=== PATIENT | female | born 1955 | race Caucasian/White ===

== ENCOUNTER 2020-01-17 21:53 | Observation (INO) | payer MEDICAID, MEDICARE, SELFPAY ==
[~2020-01-17] VITALS: Ht 160 cm; Wt 61.8 kg
[~2020-01-17 21:53] MED LIST: BACL-19 PO; BACL20TA PO; BUSP5TAB2 PO; DULO30CA2 PO; ESOM2.5S PO; ESOM20CA PO; ESOM20CA57 PO; FLUO40CA2 PO; HYDR-3245 PO; HYDR50CA2 PO; LEVO25TA2 PO; OXYC10SY PO; OXYC5TAB2 PO; PANT40TA5 PO; PREG25CA PO; PRIM50TA34 PO; SUCR1TAB33 PO
[2020-01-17] MEDS ORDERED: SODIUM CHLORIDE 0.9% 1,000ML IVBOLUS ONE (22:00)
--- NOTE | 2020-01-17 22:08 | NUR ---
BIBA. REPORT RECEIVED FROM EMS. OD(2 EMPTY BOTTLES OF 10MG OF OXYCODONE AND 1 EMPTY BOTTLE OF 10MG OXYCONTIN PER EMS) UNKNOWN CAUSE. UNKNOWN SI. AROUSABLE OF LOUD VOICE. RESPS EVEN AND UNLABORED. ALL MONITORS IN PLACE. VSS. EDMD AT BEDSIDE TO EVALUATE AT THIS TIME. EKG DONE AT BEDSIDE.
[2020-01-17] MEDS ORDERED: NALOXONE 0.4 MG/ML, 1ML ONE ×3 (22:34→22:38)
--- NOTE | 2020-01-17 22:41 | NUR ---
PT MEDICATED PER EMAR. PT TOLERATED WELL. NS INFUSING AT THIS TIME.
--- NOTE | 2020-01-17 22:42 | NUR ---
BG 52 AT THIS TIME.
[2020-01-17] MEDS ORDERED: DEXTROSE 50%, 50ML SYRINGE ONE (22:43)
[2020-01-17] MEDS ORDERED: NALOXONE 0.4 MG/ML, 1ML IVPush ONE (23:00)
--- NOTE | 2020-01-17 23:00 | NUR ---
PT STRAIGHT CATH'D USING STERILE TECHNIQUE AT THIS TIME. PT TOLERATED WELL. EMT WALKED TO LAB FOR UA.
--- NOTE | 2020-01-17 23:01 | NUR ---
PERMISSION FROM PT TO SPEAK HER DAUGHTER, CARMELITA UPDATED INFO. NUMBER [phone]
[2020-01-17 23:09] LABS: ANION GAP 9 mmol/L (5-15); CALCIUM 8.9 mg/dL (8.5-10.1); CHLORIDE 107 mmol/L (98-107)
[2020-01-17] MEDS ORDERED: BACL-19 PO (23:10)
[2020-01-17 23:11] LABS: SALICYLATE LEVEL < 1.7 mg/dL (2.8-20.0)
[2020-01-17] MEDS ORDERED: PREG75CA PO (23:11)
[2020-01-17] MEDS ORDERED: OXYC10TA6 PO (23:11)
[2020-01-17 23:12] LABS: MICROSCOPIC NOT IND
[2020-01-17] MEDS ORDERED: B12 (23:12)
[2020-01-17] MEDS ORDERED: MAGN400T36 PO (23:12)
[2020-01-17] MEDS ORDERED: POTASSIUM PO (23:13)
[2020-01-17] MEDS ORDERED: LEVO25TA4 PO (23:14)
[2020-01-17] MEDS ORDERED: FLUO40CA2 PO (23:14)
[2020-01-17] MEDS ORDERED: OMEP-110 PO (23:15)
[2020-01-17] MEDS ORDERED: CALTRATE (23:15)
[2020-01-17 23:16] LABS: AMPHETAMINE SCREEN, URINE Negative (Negative); BARBITURATE SCREEN, URINE Negative (Negative); BENZODIAZEPINE SCREEN, URINE Negative (Negative); CANNABINOID SCREEN, URINE Negative (Negative); COCAINE SCREEN, URINE Negative (Negative); CULTURE INDICATED? NO; METHADONE SCREEN, URINE Negative (Negative); OPIATE SCREEN, URINE Positive (Negative)
[2020-01-17] MEDS ORDERED: CALCIUM (23:16)
[2020-01-17 23:18] LABS: ALANINE AMINOTRANSFERASE 15 U/L (12-78); ALKALINE PHOSPHATASE 172 U/L (45-117); BILIRUBIN,TOTAL 0.8 mg/dL (0.2-1.0); CREATININE 0.81 mg/dL (0.55-1.02); FREE T4 (FREE THYROXINE) 1.11 ng/dL (0.76-1.46); TOTAL PROTEIN 6.5 g/dL (6.4-8.2)
--- NOTE | 2020-01-17 23:22 | NUR ---
BG 115 AT THIS TIME.
--- NOTE | 2020-01-17 23:27 | NUR ---
NOTED PT INCONTINENT OF URINE. FULL LINEN CHANGED COMPLETED AT THIS TIME.
[2020-01-17 23:42] LABS: MEAN CORPUSCULAR HEMOGLOBIN 29.2 pg (27.0-34.8); MEAN CORPUSCULAR HGB CONC 32.2 g/dL (32.4-35.8); MEAN CORPUSCULAR VOLUME 90.7 fL (80-100); MEAN PLATELET VOLUME 8.5 fL (7.4-10.4); PLATELET COUNT 135 x10^3/uL (130-400); RED BLOOD COUNT 3.91 x10^6/uL (3.82-5.3)
[2020-01-17 23:48] LABS: BASOPHILS # (AUTO) 0.25 x10^3/uL (0-0.1); BASOPHILS % (AUTO) 4 % (0-1); EOSINOPHILS # (AUTO) 0.15 x10^3/uL (0-0.4); EOSINOPHILS % (AUTO) 3 % (1-7); LYMPHOCYTES # (AUTO) 2.67 x10^3/uL (1-3.4); LYMPHOCYTES % (AUTO) 46 % (22-44); MD SCAN; MONOCYTES # (AUTO) 0.69 x10^3/uL (0.2-0.8); MONOCYTES % (AUTO) 12 % (2-9); NEUTROPHILS # (AUTO) 2.02 x10^3/uL (1.8-6.8); NEUTROPHILS % (AUTO) 35 % (42-75)
--- NOTE | 2020-01-18 00:05 | NUR ---
pt sleeping in [facility]. resps even and unlabored. all monitors in place. call light within reach. rails up x 2.
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
--- NOTE | 2020-01-18 01:05 | NUR ---
report from JULIOCESAR Rangel to assume care at this time.
--- NOTE | 2020-01-18 01:06 | NUR ---
PT'S SON IN LAW [phone]
--- NOTE | 2020-01-18 01:06 | NUR ---
BG 63 AT THIS TIME.
--- NOTE | 2020-01-18 01:07 | NUR ---
REPORT GIVEN TO HUNTER GANDARA.
[2020-01-18] MEDS ORDERED: DEXTROSE 50%, 50ML SYRINGE ONE (01:09)
[2020-01-18] MEDS ORDERED: DEXTROSE 50%, 50ML SYRINGE IVPush ONE (01:30)
[2020-01-18] MEDS ORDERED: POTASSIUM CHLORIDE 20 MEQ in DEXTROSE 10% 1,000 ML IV SCH (01:30)
--- NOTE | 2020-01-18 01:34 | NUR ---
PT MEDICARED PER MAR. VSS. PT NOW ARROUSABLE TO VOICE AND IS CONVERSING. PT HE SI AT THIS TIME. PT PLACED ON 2LNC. NO NEEDS EXPRESSED. PLAN TO ADMIT ICU.
--- NOTE | 2020-01-18 02:15 | NUR ---
PT NOW MUCH MORE AWAKE. POC DISCUSSED. 2ND IV ESTABLISHED. PT INCONTINENT TO STOOL AND URINE. FULL LINEN CHANGE PERFORMED WITH ASSISTANCE OF GEORGE GANDARA. PT GIVEN MULTIPLE WARM BLANKETS. PT PLACED IN POSITION OF COMFORT. PT DENIES FURTHER NEEDS AT THIS TIME. CALL LIGHT ON LAP. BED RAILS UP X2.
[2020-01-18] MEDS ORDERED: POTASSIUM CHLORIDE 20 MEQ, MAGNESIUM SULFATE 2 GM, THIAMINE 200 MG, MVI ADULT 10 ML, FO... IV SCH ×2 (03:06→14:30)
[2020-01-18] MEDS ORDERED: DEXTROSE 4 GM TAB.CHEW PO PRN (03:30)
[2020-01-18] MEDS ORDERED: hydrALAzine 20 MG/ML, 1ML IVPush PRN (03:30)
[2020-01-18] MEDS ORDERED: ACETAMINOPHEN 325 MG TABLET PO PRN (03:30)
[2020-01-18] MEDS ORDERED: ONDANSETRON 2MG/ML, 2ML IVPush PRN (03:30)
[2020-01-18] MEDS ORDERED: GLUCAGON 1 MG IM PRN (03:30)
[2020-01-18] MEDS ORDERED: DEXTROSE 50%, 50ML SYRINGE IVPush PRN (03:30)
[2020-01-18 04:53] VITALS: BP 155/84
[2020-01-18 05:38] VITALS: BP 146/74
[2020-01-18] MEDS: SODIUM CHLORIDE FLUSH 10ML SYR IVF SCH ×2 (09:28→21:25)
[2020-01-18 11:56] VITALS: BP 158/83
[2020-01-18 19:30] VITALS: BP 143/77
[2020-01-19 00:40] VITALS: BP 132/70
[2020-01-19 05:50] LABS: ALBUMIN 2.5 g/dL (3.4-5.0); ANION GAP 7 mmol/L (5-15); CALCIUM 8.5 mg/dL (8.5-10.1); CHLORIDE 106 mmol/L (98-107)
[2020-01-19 05:54] LABS: ALANINE AMINOTRANSFERASE 13 U/L (12-78); ALKALINE PHOSPHATASE 145 U/L (45-117); BILIRUBIN,TOTAL 0.9 mg/dL (0.2-1.0); CREATININE 0.57 mg/dL (0.55-1.02); TOTAL PROTEIN 6.1 g/dL (6.4-8.2)
[2020-01-19 05:56] LABS: BASOPHILS # (AUTO) 0.03 x10^3/uL (0-0.1); BASOPHILS % (AUTO) 1 % (0-1); EOSINOPHILS # (AUTO) 0.09 x10^3/uL (0-0.4); EOSINOPHILS % (AUTO) 2 % (1-7); LYMPHOCYTES # (AUTO) 1.62 x10^3/uL (1-3.4); LYMPHOCYTES % (AUTO) 28 % (22-44); MD NO; MEAN CORPUSCULAR HEMOGLOBIN 29.2 pg (27.0-34.8); MEAN CORPUSCULAR HGB CONC 32.1 g/dL (32.4-35.8); MEAN CORPUSCULAR VOLUME 91.1 fL (80-100); MEAN PLATELET VOLUME 8.5 fL (7.4-10.4); MONOCYTES # (AUTO) 0.59 x10^3/uL (0.2-0.8); MONOCYTES % (AUTO) 10 % (2-9); NEUTROPHILS # (AUTO) 3.38 x10^3/uL (1.8-6.8); NEUTROPHILS % (AUTO) 59 % (42-75); PLATELET COUNT 165 x10^3/uL (130-400); RED BLOOD COUNT 4.22 x10^6/uL (3.82-5.3); RED CELL DISTRIBUTION WIDTH 16.4 % (9.6-15.2)
[2020-01-19 07:01] VITALS: BP 148/69
[2020-01-19] MEDS: SODIUM CHLORIDE FLUSH 10ML SYR IVF SCH ×2 (08:25→20:12)
[2020-01-19] MEDS ORDERED: HYDROXYZINE PAMOATE 50MG CAP PO PRN (11:00)
[2020-01-19] MEDS: HYDROcodone/APAP 5/325 TABLET PO PRN ×3 (11:58→20:12)
[2020-01-19 12:10] VITALS: BP 145/77
[2020-01-19] MEDS ORDERED: ONDANSETRON 4 MG TABLET ONE (13:26)
[2020-01-19] MEDS: POTASSIUM CHLORIDE 20 MEQ, MAGNESIUM SULFATE 2 GM, THIAMINE 200 MG, MVI ADULT 10 ML, FO... IV SCH (15:44)
[2020-01-19 19:52] VITALS: BP 160/72
[2020-01-19] MEDS: BACLOFEN 10 MG TABLET PO SCH (20:12)
[2020-01-19] MEDS: PREGABALIN 75 MG CAPSULE PO SCH (20:12)
[2020-01-20 00:06] VITALS: BP 136/60
[2020-01-20] MEDS: HYDROcodone/APAP 5/325 TABLET PO PRN ×3 (00:23→11:22)
[2020-01-20] MEDS ORDERED: LEVOTHYROXINE 25 MCG TABLET PO SCH (06:00)
[2020-01-20 06:32] VITALS: BP 164/72
[2020-01-20] MEDS: SODIUM CHLORIDE FLUSH 10ML SYR IVF SCH (08:23)
[2020-01-20] MEDS: BACLOFEN 10 MG TABLET PO SCH (08:24)
[2020-01-20] MEDS: PREGABALIN 75 MG CAPSULE PO SCH (08:24)
[2020-01-20] MEDS ORDERED: FLUOXETINE HCL 20 MG CAPSULE PO SCH (09:00)
[2020-01-20] MEDS ORDERED: OMEPRAZOLE 20 MG CAPSULE.DR PO SCH (09:00)
[2020-01-20] MEDS ORDERED: DULOXETINE 30 MG CAPSULE.DR PO SCH (09:00)
[2020-01-20 13:25] VITALS: BP 150/76
[2020-01-20] MEDS: POTASSIUM CHLORIDE 20 MEQ, MAGNESIUM SULFATE 2 GM, THIAMINE 200 MG, MVI ADULT 10 ML, FO... IV SCH (13:31)
== END 2020-01-20 15:36 | disposition home or self-care (01) ==
LOC: EDUNIT# 21:53 → ED 01-18 01:06 → INTOOBSV 01-18 01:50 → EDIP 01-18 01:50 → MERGE 01-18 01:50 → CCU 01-18 03:59 → 4WST 01-18 11:41
PROVIDERS: ADMIT Family Medicine; ATTEND Family Medicine
DX: T40.601A Poisoning by unspecified narcotics, accidental (unintentional), initial encounter (principal); G92 Toxic encephalopathy; F11.20 Opioid dependence, uncomplicated; E16.2 Hypoglycemia, unspecified; D64.9 Anemia, unspecified; F32.9 Major depressive disorder, single episode, unspecified; G89.29 Other chronic pain; K21.9 Gastro-esophageal reflux disease without esophagitis; I65.23 Occlusion and stenosis of bilateral carotid arteries; F41.9 Anxiety disorder, unspecified; B19.20 Unspecified viral hepatitis C without hepatic coma; E03.9 Hypothyroidism, unspecified; M54.9 Dorsalgia, unspecified; Z98.84 Bariatric surgery status; Z91.5 Personal history of self-harm; Z90.49 Acquired absence of other specified parts of digestive tract; Z79.899 Other long term (current) drug therapy
CPT/HCPCS: 36415; 70450; 71045; 72125; 80053; 80307; 81003; 82140; 82962; 83735; 84100; 84439; 84443; 85025; 87081; 93005; 93306; 93880; 93971; 96361; 96365; 96366; 96375; 97161; 97165; 99291; G0378; J2310; J2405; J3411; J3475; J3480; J7030; J7042; 96374